=== PATIENT | female | born 2000 | race Native Hawaiian/Other Pacific Islander ===

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

== ENCOUNTER 2022-04-06 19:57 | Emergency (ER) | payer OTHER ==
[~2022-04-06] VITALS: Ht 149.9 cm; Wt 76.2 kg
[~2022-04-06 19:57] MED LIST: ADMELOG SO100 UNIT/M SC; BASAGLAR K100 UNIT/M SC; LISI5TAB10 PO; METOPROLOL25 M1 PO; OMEPRAZOLE DR20 MG PO
[2022-04-06 20:00] VITALS: TEMP 98.2
[2022-04-06 20:50] LABS: PLATELET COUNT 361 K/uL (152-353)
[2022-04-06 20:58] LABS: POTASSIUM 4.1 mmol/L (3.6-5.2)
[2022-04-06] MEDS ORDERED: FURO40TA93 PO (21:34)
[2022-04-06] MEDS ORDERED: K-TAB20 MEQ PO (21:34)
[2022-04-06 21:40] VITALS: BP 135/86
== END 2022-04-06 21:40 | disposition home or self-care (01) ==
LOC: ED 19:57
PROVIDERS: Emergency Medicine Emergency Medical Services
DX: R60.0 Localized edema (principal)
CPT/HCPCS: 36415; 80048; 81000; 83735; 85027; 99282